=== PATIENT | female | born 1945 | race Caucasian/White ===

== ENCOUNTER 2021-03-11 11:46 | Inpatient (IN) | payer MEDICARE, MEDICAID ==
[~2021-03-11] VITALS: Ht 154.9 cm; Wt 49.0 kg
[2021-03-11 12:49] LABS: HEMOGLOBIN 11.5 gm/dl (12.3-15.3); RED BLOOD COUNT 3.88 M/UL (4.00-5.10); WHITE BLOOD COUNT 24.2 K/UL (4.5-11.0)
[2021-03-11 13:19] LABS: BUN/CREATININE RATIO 13 (0-10)
[2021-03-11] MEDS ORDERED: AMLODIPINE BESY10 MG PO (16:56)
[2021-03-11] MEDS ORDERED: METOPROLOL TART50 MG PO (16:56)
[2021-03-12 07:11] LABS: HEMOGLOBIN 11.5 gm/dl (12.3-15.3); RED BLOOD COUNT 3.89 M/UL (4.00-5.10)
[2021-03-12 07:39] LABS: WHITE BLOOD COUNT 11.1 K/UL (4.5-11.0)
[2021-03-12 08:17] LABS: BUN/CREATININE RATIO 24 (0-10)
[2021-03-12 14:07] LABS: ACINETOBACTER BAUMANNII Not Detected (Negative); CANDIDA ALBICANS Not Detected (Negative); CANDIDA KRUSEI Not Detected (Negative); CANDIDA TROPICALIS Not Detected (Negative); ENTEROCOCCUS Not Detected (Negative); ESCHERICHIA COLI Not Detected (Negative); HAEMOPHILUS INFLUENZAE Not Detected (Negative); KLEBSIELLA OXYTOCA Not Detected (Negative); KLEBSIELLA PNEUMONIAE Not Detected (Negative); KPC-CARBAPENEM-RESISTANCE GENE Not Detected (Negative); PROTEUS Not Detected (Negative); PSEUDOMONAS AERUGINOSA Not Detected (Negative); SERRATIA MARCESANS Not Detected (Negative); STAPHYLOCOCCUS AUREUS Not Detected (Negative); STREP AGALACTIAE (GROUP B) Not Detected (Negative); STREP PYOGENES (GROUP A) Not Detected (Negative); STREPTOCOCCUS Not Detected (Negative); mecA (METHICILLIN RESIST GENE Not Detected (Negative); vanA/B (VANCOMYCIN RESIST GENE Not Detected (Negative)
[2021-03-12 15:19] LABS: STAPHYLOCOCCUS DETECTED (Negative)
[2021-03-13 06:19] LABS: HEMOGLOBIN 11.6 gm/dl (12.3-15.3); RED BLOOD COUNT 3.85 M/UL (4.00-5.10)
[2021-03-13 06:20] LABS: WHITE BLOOD COUNT 14.6 K/UL (4.5-11.0)
[2021-03-13 06:53] LABS: BUN/CREATININE RATIO 27 (0-10)
[2021-03-14 06:34] LABS: HEMOGLOBIN 11.4 gm/dl (12.3-15.3); RED BLOOD COUNT 3.86 M/UL (4.00-5.10)
[2021-03-14 06:52] LABS: BUN/CREATININE RATIO 32 (0-10)
[2021-03-14 07:07] LABS: WHITE BLOOD COUNT 8.9 K/UL (4.5-11.0)
[2021-03-15 04:56] LABS: RED BLOOD COUNT 4.07 M/UL (4.00-5.10)
[2021-03-15 05:21] LABS: BUN/CREATININE RATIO 27 (0-10)
[2021-03-15] MEDS ORDERED: DECADRON6 MG PO (11:16)
[2021-03-15] MEDS ORDERED: LEVOFLOXACIN750 MG PO (11:16)
== END 2021-03-15 14:25 | disposition home or self-care (01) | DRG 177 ==
LOC: ER1 11:46 → CDU 17:00 → MED SURG 4 17:00
PROVIDERS: Physician Assistant Medical; ADMIT Internal Medicine
PROC: 3E0333Z Introduction of Anti-inflammatory into Peripheral Vein, Percutaneous Approach (ICD-10-PCS; principal; 2021-03-11)
PROC: XW033E5 Introduction of Remdesivir Anti-infective into Peripheral Vein, Percutaneous Approach, New Technology Group 5 (ICD-10-PCS; 2021-03-11)
DX: U07.1 COVID-19 (principal); J96.01 Acute respiratory failure with hypoxia; J12.82 Pneumonia due to coronavirus disease 2019; A41.89 Other specified sepsis; R65.20 Severe sepsis without septic shock; N39.0 Urinary tract infection, site not specified; R78.81 Bacteremia; E87.6 Hypokalemia; F03.90 Unspecified dementia, unspecified severity, without behavioral disturbance, psychotic disturbance, mood disturbance, and anxiety; B96.20 Unspecified Escherichia coli [E. coli] as the cause of diseases classified elsewhere; I10 Essential (primary) hypertension; I71.4 Abdominal aortic aneurysm, without rupture; Z99.81 Dependence on supplemental oxygen; Z90.49 Acquired absence of other specified parts of digestive tract; Z88.0 Allergy status to penicillin
CPT/HCPCS: 36415; 36600; 51701; 71045; 80048; 80053; 80202; 81001; 82272; 82533; 82803; 83605; 83735; 83880; 84100; 84439; 84443; 85025; 85027; 85379; 86140; 87040; 87077; 87086; 87150; 87186; 93005; 94640; 94760; 96374; 97116-GP-CQ; 97162; 99285; J0456; J0696; J1100; J1650; J1956; J3370; J7030; J7050; J7070; Q9967; U0002